=== PATIENT | female | born 1955 | race Caucasian/White ===

== ENCOUNTER 2020-11-17 11:22 | Observation (INO) ==
[2020-11-17 12:05] LABS: Basophils % 0.3 % (0.0-0.8); Eosinophils % 0.2 % (0.00-10.9); Hematocrit 40.6 VOL% (35.7-47.0); Hemoglobin 13.2 GM/DL (12.0-16.0); Immature Granulocytes % 0.8 %; Immature Granulocytes Absolute 0.09 #; Lymphocytes # 0.7 10*3/uL (1.4-4.0); Lymphocytes % 6.3 % (21.3-54.2); Mean Corpuscular HGB Conc 32.5 GM/DL (32-36); Mean Corpuscular Volume 90.4 FL (87-102); Monocytes % 4.1 % (1.7-12.7); Neutrophils % 88.3 % (38.7-73.9); Platelet Count 213 T/CUMM (130-400); Red Blood Count 4.49 MC/CUMM (3.8-5.5); Red Cell Distribution Width 12.5 % (9.3-17.3)
[2020-11-17 12:26] LABS: Albumin 3.1 G/DL (3.4-5.0); Calcium 9.1 MG/DL (8.5-10.1); Total Protein 6.2 G/DL (6.4-8.3)
[2020-11-17 13:49] LABS: Ferritin 867.6 ng/ml (8-252)
[2020-11-17] MEDS ORDERED: DEXAMETHASONE 4 MG/1 ML VIAL IV STA (13:55)
[2020-11-17] MEDS ORDERED: LEVOFLOXACIN INJ 500 MG in PREMIX 1 EACH IV STA (13:56)
[2020-11-17] MEDS ORDERED: DEXTROSE 50% 25 GM/50 ML VIAL IV PRN (15:03)
[2020-11-17] MEDS ORDERED: GLUCAGON 1 MG VIAL IM PRN (15:03)
[2020-11-17] MEDS ORDERED: ACETAMINOPHEN 325 MG TABLET PO PRN (15:03)
[2020-11-17] MEDS ORDERED: ONDANSETRON 4 MG/2 ML VIAL IV PRN (15:03)
[2020-11-17] MEDS ORDERED: hydrALAZINE 20 MG/1 ML VIAL IV PRN (15:03)
[2020-11-17] MEDS ORDERED: DOCUSATE SODIUM 100 MG CAPSULE PO PRN (15:03)
[2020-11-17] MEDS ORDERED: AZITHROMYCIN INJ 500 MG in SODIUM CHLORIDE 0.9% 250 ML IV ONE (15:06)
[2020-11-17] MEDS ORDERED: MELATONIN 3 MG TABLET PO PRN (15:06)
[2020-11-17] MEDS ORDERED: ENOXAPARIN 40 MG/0.4 ML SYRINGE SUBCUT SCH (15:30)
[2020-11-17 17:07] LABS: PT Patient Result 10.7 SECS (9.8-11.9)
[2020-11-17] MEDS: guaiFENesin/DM ER 600-30 MG TABLET PO SCH (20:55)
[2020-11-17] MEDS: ASCORBIC ACID 500 MG TABLET PO SCH (20:55)
[2020-11-18 05:44] LABS: Basophils % 0.1 % (0.0-0.8); Hematocrit 36.9 VOL% (35.7-47.0); Hemoglobin 12.7 GM/DL (12.0-16.0); Immature Granulocytes % 1.1 %; Mean Corpuscular HGB Conc 34.4 GM/DL (32-36); Mean Corpuscular Volume 88.7 FL (87-102); Mean Platelet Volume 10.1 FL (9.6-12.0); Monocytes % 3.9 % (1.7-12.7); Neutrophils % 83.9 % (38.7-73.9); Platelet Count 228 T/CUMM (130-400); Red Blood Count 4.16 MC/CUMM (3.8-5.5); Red Cell Distribution Width 12.5 % (9.3-17.3); White Blood Count 8.8 T/CUMM (4-12)
[2020-11-18 06:19] LABS: Ferritin 767.3 ng/ml (8-252)
[2020-11-18 06:29] LABS: Calcium 9.1 MG/DL (8.5-10.1); Osmolality,Calculated 279.5 MOS/KG (273-304); Potassium 4.7 MMOL/L (3.5-5.1); Risk Ratio 5.47; Thyroid Stimulating Hormone 0.322 uIU/ml (0.358-3.74); VLDL CHOLESTEROL 22.4 MG/DL
[2020-11-18] MEDS: guaiFENesin/DM ER 600-30 MG TABLET PO SCH (08:23)
[2020-11-18] MEDS: ASCORBIC ACID 500 MG TABLET PO SCH (08:23)
[2020-11-18] MEDS ORDERED: PANTOPRAZOLE 40 MG TABLET PO SCH (09:00)
[2020-11-18] MEDS ORDERED: CETIRIZINE 10 MG TABLET PO SCH (09:00)
[2020-11-18] MEDS ORDERED: DEXAMETHASONE 4 MG/1 ML VIAL IV SCH (09:00)
[2020-11-18] MEDS ORDERED: CHOLECALCIFEROL 1,000 UNIT TABLET PO SCH (09:00)
[2020-11-18] MEDS ORDERED: ZINC GLUCONATE 50 MG TABLET PO SCH (09:00)
[2020-11-18 11:41] LABS: Free T4 (Free Thyroxine) 1.33 NG/DL (0.76-1.46)
[2020-11-18 16:05] VITALS: BP 108/70
== END 2020-11-18 16:45 | disposition home or self-care (01) ==
LOC: N.ED 11:22 → N.EDINP 11:22 → N.2E 15:36
PROVIDERS: ADMIT Internal Medicine; ATTEND Internal Medicine

== ENCOUNTER 2020-11-25 20:14 | Inpatient (IN) ==
[2020-11-25 20:51] LABS: Basophils # 0.1 10*3/uL (0.0-0.2); Basophils % 0.2 % (0.0-0.8); Eosinophils # 0.2 10*3/uL (0.0-0.87); Hematocrit 35.8 VOL% (35.7-47.0); Hemoglobin 11.8 GM/DL (12.0-16.0); Immature Granulocytes Absolute 0.21 #; Lymphocytes # 1.4 10*3/uL (1.4-4.0); Lymphocytes % 6.3 % (21.3-54.2); Mean Corpuscular Volume 89.1 FL (87-102); Mean Platelet Volume 9.3 FL (9.6-12.0); Monocytes % 4.2 % (1.7-12.7); Neutrophils % 87.3 % (38.7-73.9); Platelet Count 335 T/CUMM (130-400); Red Blood Count 4.02 MC/CUMM (3.8-5.5); Red Cell Distribution Width 12.6 % (9.3-17.3); White Blood Count 21.4 T/CUMM (4-12)
[2020-11-25] MEDS ORDERED: LEVOFLOXACIN INJ 750 MG in PREMIX 1 EACH IV STA (21:07)
[2020-11-25 21:16] LABS: Albumin 2.2 G/DL (3.4-5.0); Bilirubin,Total 0.8 MG/DL (0.2-1.0); Calcium 8.7 MG/DL (8.5-10.1); Osmolality,Calculated 273.8 MOS/KG (273-304); Potassium 3.6 MMOL/L (3.5-5.1); Total Protein 6.7 G/DL (6.4-8.3)
[2020-11-25 21:24] LABS: Ferritin 919.1 ng/ml (8-252)
[2020-11-25 21:27] LABS: Eosinophils 1 % (0-10); Lymphocytes 12 % (20-55); Metamyelocytes 1 %; Polychromasia Few; Reactive Lymphocytes 1+; Segmented Neutrophils 83 % (50-85); Total Cells Counted 100
[2020-11-25 21:28] LABS: Platelet Estimate Increased
[2020-11-25] MEDS ORDERED: DEXAMETHASONE 4 MG/1 ML VIAL IV STA (21:45)
[2020-11-25] MEDS ORDERED: DEXAMETHASONE 10 MG/1 ML VIAL ONE (21:46)
[2020-11-25] MEDS ORDERED: SODIUM CHLORIDE 0.9% 1,000 ML IV STA (21:47)
[2020-11-25] MEDS ORDERED: ACETAMINOPHEN 500 MG TABLET PO STA (22:58)
[2020-11-25] MEDS ORDERED: ENOXAPARIN 30 MG/0.3 ML SYRINGE SUBCUT STA (22:58)
[2020-11-25] MEDS ORDERED: ENOXAPARIN 100 MG/ML SYRINGE SUBCUT ONE (23:14)
[2020-11-26] MEDS ORDERED: ACETAMINOPHEN 325 MG TABLET PO PRN (02:19)
[2020-11-26] MEDS ORDERED: ONDANSETRON 4 MG/2 ML VIAL IV PRN (02:19)
[2020-11-26 06:39] LABS: Basophils % 0.1 % (0.0-0.8); Hematocrit 32.3 VOL% (35.7-47.0); Hemoglobin 10.9 GM/DL (12.0-16.0); Immature Granulocytes % 0.8 %; Immature Granulocytes Absolute 0.14 #; Lymphocytes % 5.8 % (21.3-54.2); Mean Corpuscular HGB Conc 33.7 GM/DL (32-36); Mean Corpuscular Volume 89.2 FL (87-102); Mean Platelet Volume 9.2 FL (9.6-12.0); Monocytes % 1.3 % (1.7-12.7); Platelet Count 294 T/CUMM (130-400); Red Blood Count 3.62 MC/CUMM (3.8-5.5); Red Cell Distribution Width 12.9 % (9.3-17.3); White Blood Count 16.5 T/CUMM (4-12)
[2020-11-26 07:46] LABS: Albumin 1.8 G/DL (3.4-5.0); Bilirubin,Total 0.9 MG/DL (0.2-1.0); Calcium 8.8 MG/DL (8.5-10.1); Ferritin 764.7 ng/ml (8-252); Osmolality,Calculated 278.5 MOS/KG (273-304); Potassium 3.9 MMOL/L (3.5-5.1); Total Protein 6.2 G/DL (6.4-8.3)
[2020-11-26 08:18] LABS: Lymphocytes 4 % (20-55); Platelet Estimate Normal; Polychromasia Slight; Segmented Neutrophils 94 % (50-85); Total Cells Counted 100
[2020-11-26] MEDS ORDERED: RIVAROXABAN 15 MG TABLET PO SCH (09:00)
[2020-11-26] MEDS ORDERED: [UNRECOGNIZED DRUG - OTHER] PO SCH (09:00)
[2020-11-26] MEDS ORDERED: DEXAMETHASONE 10 MG/1 ML VIAL IV SCH (09:00)
[2020-11-26] MEDS: ASPIRIN EC 81 MG TABLET PO SCH (10:19)
[2020-11-26] MEDS: LOSARTAN 25 MG TABLET PO SCH (10:19)
[2020-11-26] MEDS: PANTOPRAZOLE 40 MG TABLET PO SCH (10:19)
[2020-11-26] MEDS: ASCORBIC ACID 500 MG TABLET PO SCH ×2 (10:19→20:59)
[2020-11-26] MEDS: ZINC GLUCONATE 50 MG TABLET PO SCH (10:19)
[2020-11-26] MEDS: MULTIVITAMIN (CENTRUM) TABLET PO SCH (10:22)
[2020-11-26] MEDS ORDERED: INFLUENZA VIRUS VACCINE 0.5 ML SYRINGE IM ONE (10:41)
[2020-11-26] MEDS: CEFEPIME 1,000 MG in SODIUM CHLORIDE 0.9% 100 ML IV SCH ×2 (13:01→19:03)
[2020-11-26] MEDS: methylPREDNISolone SOD SUC 40 MG/1 ML VIAL IV SCH ×2 (13:02→20:58)
[2020-11-26] MEDS: [UNRECOGNIZED DRUG - REMARK] BOTH NARES SCH ×2 (13:05→21:54)
[2020-11-26] MEDS: VANCOMYCIN INJ 1,250 MG in SODIUM CHLORIDE 0.9% 250 ML IV SCH (13:42)
[2020-11-26] MEDS: HEPARIN DRIP 25,000 UNITS/500 ML PREMIX IV SCH (14:15)
[2020-11-26] MEDS ORDERED: LEVOFLOXACIN INJ 750 MG in PREMIX 1 EACH IV SCH (21:00)
[2020-11-26] MEDS: FLUTICASONE 50 MCG NASAL SPRAY 16 GM BOTTLE BOTH NARES SCH (22:05)
[2020-11-27] MEDS: CEFEPIME 1,000 MG in SODIUM CHLORIDE 0.9% 100 ML IV SCH ×4 (01:16→18:06)
[2020-11-27] MEDS: VANCOMYCIN INJ 1,250 MG in SODIUM CHLORIDE 0.9% 250 ML IV SCH ×2 (01:48→15:45)
[2020-11-27 04:20] LABS: Basophils % 0.1 % (0.0-0.8); Hematocrit 32.8 VOL% (35.7-47.0); Hemoglobin 10.8 GM/DL (12.0-16.0); Immature Granulocytes % 1.5 %; Immature Granulocytes Absolute 0.39 #; Lymphocytes # 1.7 10*3/uL (1.4-4.0); Lymphocytes % 6.4 % (21.3-54.2); Mean Corpuscular HGB Conc 32.9 GM/DL (32-36); Mean Corpuscular Volume 90.1 FL (87-102); Mean Platelet Volume 9.3 FL (9.6-12.0); Monocytes % 3.8 % (1.7-12.7); Neutrophils % 88.2 % (38.7-73.9); Platelet Count 399 T/CUMM (130-400); Red Blood Count 3.64 MC/CUMM (3.8-5.5); Red Cell Distribution Width 12.9 % (9.3-17.3); White Blood Count 26.1 T/CUMM (4-12)
[2020-11-27 04:58] LABS: Calcium 8.7 MG/DL (8.5-10.1); Osmolality,Calculated 278.5 MOS/KG (273-304); Potassium 3.7 MMOL/L (3.5-5.1)
[2020-11-27] MEDS: methylPREDNISolone SOD SUC 40 MG/1 ML VIAL IV SCH ×3 (04:58→20:42)
[2020-11-27] MEDS: HEPARIN DRIP 25,000 UNITS/500 ML PREMIX IV SCH (05:24)
[2020-11-27] MEDS: LOSARTAN 25 MG TABLET PO SCH (08:16)
[2020-11-27] MEDS: ASCORBIC ACID 500 MG TABLET PO SCH ×2 (08:16→20:39)
[2020-11-27] MEDS: ASPIRIN EC 81 MG TABLET PO SCH (08:16)
[2020-11-27] MEDS: PANTOPRAZOLE 40 MG TABLET PO SCH (08:16)
[2020-11-27] MEDS: ZINC GLUCONATE 50 MG TABLET PO SCH (08:16)
[2020-11-27] MEDS: MULTIVITAMIN (CENTRUM) TABLET PO SCH (08:16)
[2020-11-27 08:33] LABS: Lymphocytes 10 % (20-55); Metamyelocytes 1 %; Microcytosis 1+; Myelocytes 1 %; Ovalocytes Few; Platelet Estimate Normal; Polychromasia Slight; Segmented Neutrophils 86 % (50-85); Total Cells Counted 100
[2020-11-27] MEDS: FLUTICASONE 50 MCG NASAL SPRAY 16 GM BOTTLE BOTH NARES SCH ×2 (09:31→20:42)
[2020-11-27] MEDS: APIXABAN 5 MG TABLET PO SCH ×2 (13:12→20:40)
[2020-11-27] MEDS: DOXYCYCLINE HYCLATE 100 MG CAPSULE PO SCH (20:39)
[2020-11-28] MEDS: CEFEPIME 1,000 MG in SODIUM CHLORIDE 0.9% 100 ML IV SCH ×4 (00:22→18:55)
[2020-11-28] MEDS ORDERED: MORPHINE 4 MG/1 ML VIAL IV ONE (01:19)
[2020-11-28] MEDS ORDERED: METOPROLOL TARTRATE 5 MG/5 ML VIAL IV ONE (02:09)
[2020-11-28 02:59] LABS: Basophils % 0.1 % (0.0-0.8); Hematocrit 33.8 VOL% (35.7-47.0); Hemoglobin 11.1 GM/DL (12.0-16.0); Immature Granulocytes % 2.3 %; Immature Granulocytes Absolute 0.61 #; Lymphocytes # 1.1 10*3/uL (1.4-4.0); Mean Corpuscular HGB Conc 32.8 GM/DL (32-36); Mean Corpuscular Volume 89.9 FL (87-102); Mean Platelet Volume 9.3 FL (9.6-12.0); Monocytes % 3.5 % (1.7-12.7); Neutrophils % 90.1 % (38.7-73.9); Platelet Count 370 T/CUMM (130-400); Red Blood Count 3.76 MC/CUMM (3.8-5.5); White Blood Count 26.1 T/CUMM (4-12)
[2020-11-28 03:26] LABS: Bilirubin,Direct 0.18 MG/DL (0.0-0.20); Bilirubin,Indirect 0.2 MG/DL (0.0-1.0); Bilirubin,Total 0.4 MG/DL (0.2-1.0); Calcium 8.2 MG/DL (8.5-10.1); Osmolality,Calculated 281.4 MOS/KG (273-304); Potassium 3.6 MMOL/L (3.5-5.1); Total Protein 6.2 G/DL (6.4-8.3)
[2020-11-28] MEDS: VANCOMYCIN INJ 1,250 MG in SODIUM CHLORIDE 0.9% 250 ML IV SCH (03:29)
[2020-11-28 04:11] LABS: Eosinophils 2 % (0-10); Lymphocytes 9 % (20-55); Microcytosis 2+; Nucleated Red Blood Cells 1 (0-5); Segmented Neutrophils 89 % (50-85); Total Cells Counted 100
[2020-11-28 04:12] LABS: Platelet Estimate Adequate; Polychromasia Slight
[2020-11-28] MEDS: methylPREDNISolone SOD SUC 40 MG/1 ML VIAL IV SCH ×3 (04:30→20:47)
[2020-11-28] MEDS: DOXYCYCLINE HYCLATE 100 MG CAPSULE PO SCH ×2 (09:02→20:48)
[2020-11-28] MEDS: PANTOPRAZOLE 40 MG TABLET PO SCH (09:02)
[2020-11-28] MEDS: APIXABAN 5 MG TABLET PO SCH ×2 (09:02→20:48)
[2020-11-28] MEDS: ZINC GLUCONATE 50 MG TABLET PO SCH (09:03)
[2020-11-28] MEDS: MULTIVITAMIN (CENTRUM) TABLET PO SCH (09:03)
[2020-11-28] MEDS: ASCORBIC ACID 500 MG TABLET PO SCH ×2 (09:03→20:48)
[2020-11-28] MEDS: LOSARTAN 25 MG TABLET PO SCH (09:03)
[2020-11-28] MEDS: FLUTICASONE 50 MCG NASAL SPRAY 16 GM BOTTLE BOTH NARES SCH ×2 (09:03→20:48)
[2020-11-28] MEDS: ALPRAZolam 0.25 MG TABLET PO PRN ×2 (13:52→20:48)
[2020-11-28] MEDS: VANCOMYCIN INJ 1,500 MG in SODIUM CHLORIDE 0.9% 500 ML IV SCH (13:52)
[2020-11-29] MEDS: VANCOMYCIN INJ 1,500 MG in SODIUM CHLORIDE 0.9% 500 ML IV SCH ×2 (00:02→11:22)
[2020-11-29] MEDS: MORPHINE 4 MG/1 ML VIAL IV PRN ×2 (00:03→20:45)
[2020-11-29] MEDS: ALBUTEROL INHALER 18 GM INH PRN ×2 (00:28→08:11)
[2020-11-29] MEDS: CEFEPIME 1,000 MG in SODIUM CHLORIDE 0.9% 100 ML IV SCH ×4 (01:33→18:13)
[2020-11-29] MEDS: methylPREDNISolone SOD SUC 40 MG/1 ML VIAL IV SCH ×3 (04:48→20:48)
[2020-11-29 04:56] LABS: Basophils % 0.1 % (0.0-0.8); Hematocrit 33.5 VOL% (35.7-47.0); Hemoglobin 10.9 GM/DL (12.0-16.0); Immature Granulocytes % 1.7 %; Immature Granulocytes Absolute 0.35 #; Lymphocytes # 1.1 10*3/uL (1.4-4.0); Lymphocytes % 5.4 % (21.3-54.2); Mean Corpuscular HGB Conc 32.5 GM/DL (32-36); Mean Corpuscular Volume 89.6 FL (87-102); Mean Platelet Volume 9.3 FL (9.6-12.0); Neutrophils % 89.8 % (38.7-73.9); Platelet Count 303 T/CUMM (130-400); Red Blood Count 3.74 MC/CUMM (3.8-5.5); Red Cell Distribution Width 12.9 % (9.3-17.3)
[2020-11-29 05:19] LABS: Hypochromasia 1+; Lymphocytes 7 % (20-55); Microcytosis 1+; Platelet Estimate Adequate; Segmented Neutrophils 90 % (50-85); Total Cells Counted 100
[2020-11-29 05:21] LABS: Albumin 1.8 G/DL (3.4-5.0); Calcium 8.7 MG/DL (8.5-10.1); Osmolality,Calculated 279.4 MOS/KG (273-304); Potassium 3.6 MMOL/L (3.5-5.1); Total Protein 6.2 G/DL (6.4-8.3)
[2020-11-29] MEDS: DOXYCYCLINE HYCLATE 100 MG CAPSULE PO SCH ×2 (08:06→20:47)
[2020-11-29] MEDS: ZINC GLUCONATE 50 MG TABLET PO SCH (08:06)
[2020-11-29] MEDS: ASCORBIC ACID 500 MG TABLET PO SCH ×2 (08:07→20:48)
[2020-11-29] MEDS: PANTOPRAZOLE 40 MG TABLET PO SCH (08:07)
[2020-11-29] MEDS: APIXABAN 5 MG TABLET PO SCH ×2 (08:07→20:48)
[2020-11-29] MEDS: LOSARTAN 25 MG TABLET PO SCH (08:07)
[2020-11-29] MEDS: MULTIVITAMIN (CENTRUM) TABLET PO SCH (08:07)
[2020-11-29] MEDS: FLUTICASONE 50 MCG NASAL SPRAY 16 GM BOTTLE BOTH NARES SCH ×2 (08:08→20:48)
[2020-11-29] MEDS: ALBUTEROL INHALER 18 GM INH SCH ×2 (13:56→18:13)
[2020-11-29] MEDS: ALPRAZolam 0.25 MG TABLET PO PRN (13:56)
[2020-11-30] MEDS: VANCOMYCIN INJ 1,500 MG in SODIUM CHLORIDE 0.9% 500 ML IV SCH (00:11)
[2020-11-30] MEDS: ALPRAZolam 0.25 MG TABLET PO PRN ×3 (00:26→21:22)
[2020-11-30] MEDS: CEFEPIME 1,000 MG in SODIUM CHLORIDE 0.9% 100 ML IV SCH ×2 (01:27→06:06)
[2020-11-30] MEDS: ALBUTEROL INHALER 18 GM INH SCH ×4 (01:27→21:21)
[2020-11-30 03:49] LABS: ABG HCO3 28.8 MMOL/L (20-26); ABG Oxygen Saturation 90.3 % (95-100); ABG PCO2 39.9 MM HG (35-48); ABG PH 7.477 (7.35-7.45); ABG PO2 57.4 MM HG (80-95); ABG TCO2 30.1 MMOL/L (23-27); Allen Test Positive; Pt O2 Delivery Device Other
[2020-11-30 04:32] LABS: Basophils % 0.1 % (0.0-0.8); Hematocrit 33.4 VOL% (35.7-47.0); Hemoglobin 10.5 GM/DL (12.0-16.0); Immature Granulocytes % 2.4 %; Immature Granulocytes Absolute 0.49 #; Lymphocytes % 4.8 % (21.3-54.2); Mean Corpuscular HGB Conc 31.4 GM/DL (32-36); Mean Corpuscular Volume 91.8 FL (87-102); Mean Platelet Volume 9.5 FL (9.6-12.0); Monocytes % 2.8 % (1.7-12.7); Neutrophils % 89.9 % (38.7-73.9); Platelet Count 260 T/CUMM (130-400); Red Blood Count 3.64 MC/CUMM (3.8-5.5); Red Cell Distribution Width 13.1 % (9.3-17.3); White Blood Count 20.1 T/CUMM (4-12)
[2020-11-30 04:58] LABS: Hypochromasia 1+; Lymphocytes 5 % (20-55); Microcytosis 1+; Platelet Estimate Adequate; Segmented Neutrophils 92 % (50-85); Total Cells Counted 100
[2020-11-30] MEDS: methylPREDNISolone SOD SUC 40 MG/1 ML VIAL IV SCH ×3 (05:46→18:01)
[2020-11-30] MEDS ORDERED: FUROSEMIDE 40 MG/4 ML VIAL IV ONE (07:47)
[2020-11-30] MEDS: DOXYCYCLINE HYCLATE 100 MG CAPSULE PO SCH (08:08)
[2020-11-30] MEDS: ASCORBIC ACID 500 MG TABLET PO SCH ×2 (08:09→21:21)
[2020-11-30] MEDS: PANTOPRAZOLE 40 MG TABLET PO SCH (08:09)
[2020-11-30] MEDS: MULTIVITAMIN (CENTRUM) TABLET PO SCH (08:09)
[2020-11-30] MEDS: ZINC GLUCONATE 50 MG TABLET PO SCH (08:09)
[2020-11-30] MEDS: FLUTICASONE 50 MCG NASAL SPRAY 16 GM BOTTLE BOTH NARES SCH ×2 (08:09→21:21)
[2020-11-30] MEDS: LOSARTAN 25 MG TABLET PO SCH (08:12)
[2020-11-30] MEDS: APIXABAN 5 MG TABLET PO SCH ×2 (08:12→21:21)
[2020-11-30] MEDS: cefTRIAXone 1,000 MG in SYRINGE 1 EACH IV SCH (12:11)
[2020-11-30] MEDS: MORPHINE 4 MG/1 ML VIAL IV PRN (13:19)
[2020-12-01] MEDS: methylPREDNISolone SOD SUC 40 MG/1 ML VIAL IV SCH ×4 (00:04→18:13)
[2020-12-01] MEDS: ALBUTEROL INHALER 18 GM INH SCH ×4 (00:11→18:13)
[2020-12-01] MEDS: guaiFENesin/CODEINE 5 ML LIQUID PO PRN ×2 (00:36→14:10)
[2020-12-01 04:12] LABS: Basophils % 0.1 % (0.0-0.8); Hematocrit 32.3 VOL% (35.7-47.0); Immature Granulocytes % 2.5 %; Immature Granulocytes Absolute 0.43 #; Lymphocytes # 0.9 10*3/uL (1.4-4.0); Lymphocytes % 5.3 % (21.3-54.2); Mean Corpuscular HGB Conc 34.1 GM/DL (32-36); Mean Corpuscular Volume 88.3 FL (87-102); Mean Platelet Volume 9.6 FL (9.6-12.0); Monocytes % 2.5 % (1.7-12.7); NRBC # 0.02 10*3/uL; Neutrophils % 89.6 % (38.7-73.9); Platelet Count 246 T/CUMM (130-400); Red Blood Count 3.66 MC/CUMM (3.8-5.5); White Blood Count 17.5 T/CUMM (4-12)
[2020-12-01 04:35] LABS: Hypochromasia Slight; Microcytosis Slight; Platelet Estimate Adequate
[2020-12-01 04:37] LABS: Calcium 8.3 MG/DL (8.5-10.1); Osmolality,Calculated 285.1 MOS/KG (273-304); Potassium 3.9 MMOL/L (3.5-5.1)
[2020-12-01] MEDS: FLUTICASONE 50 MCG NASAL SPRAY 16 GM BOTTLE BOTH NARES SCH ×2 (08:30→20:41)
[2020-12-01] MEDS: PANTOPRAZOLE 40 MG TABLET PO SCH (08:30)
[2020-12-01] MEDS: MULTIVITAMIN (CENTRUM) TABLET PO SCH (08:30)
[2020-12-01] MEDS: ALPRAZolam 0.25 MG TABLET PO PRN ×2 (08:30→20:41)
[2020-12-01] MEDS: LOSARTAN 25 MG TABLET PO SCH (08:30)
[2020-12-01] MEDS: ZINC GLUCONATE 50 MG TABLET PO SCH (08:30)
[2020-12-01] MEDS: ASCORBIC ACID 500 MG TABLET PO SCH ×2 (08:30→20:41)
[2020-12-01] MEDS: APIXABAN 5 MG TABLET PO SCH ×2 (08:30→20:41)
[2020-12-01] MEDS: MORPHINE 4 MG/1 ML VIAL IV PRN ×2 (10:19→16:00)
[2020-12-01] MEDS: cefTRIAXone 1,000 MG in SYRINGE 1 EACH IV SCH (13:00)
[2020-12-02] MEDS: methylPREDNISolone SOD SUC 40 MG/1 ML VIAL IV SCH ×4 (00:43→18:11)
[2020-12-02] MEDS: ALBUTEROL INHALER 18 GM INH SCH ×4 (01:44→19:52)
[2020-12-02 04:44] LABS: ABG Base Excess 8.6 MMOL/L (-2.5-2.5); ABG HCO3 33.1 MMOL/L (20-26); ABG Oxygen Saturation 89.8 % (95-100); ABG PCO2 45.1 MM HG (35-48); ABG PH 7.483 (7.35-7.45); ABG PO2 54.4 MM HG (80-95); ABG TCO2 34.4 MMOL/L (23-27)
[2020-12-02] MEDS ORDERED: hydrALAZINE 20 MG/1 ML VIAL IV PRN (05:44)
[2020-12-02] MEDS: MORPHINE 4 MG/1 ML VIAL IV PRN (06:32)
[2020-12-02] MEDS: ALPRAZolam 0.25 MG TABLET PO PRN (06:52)
[2020-12-02] MEDS: guaiFENesin/CODEINE 5 ML LIQUID PO PRN (06:53)
[2020-12-02] MEDS: PANTOPRAZOLE 40 MG TABLET PO SCH (08:25)
[2020-12-02] MEDS: ZINC GLUCONATE 50 MG TABLET PO SCH (08:25)
[2020-12-02] MEDS: FLUTICASONE 50 MCG NASAL SPRAY 16 GM BOTTLE BOTH NARES SCH ×2 (08:26→20:37)
[2020-12-02] MEDS: ASCORBIC ACID 500 MG TABLET PO SCH ×2 (08:26→20:37)
[2020-12-02] MEDS: APIXABAN 5 MG TABLET PO SCH ×2 (08:26→20:29)
[2020-12-02] MEDS: MULTIVITAMIN (CENTRUM) TABLET PO SCH (08:26)
[2020-12-02] MEDS: LOSARTAN 25 MG TABLET PO SCH (08:26)
[2020-12-02] MEDS ORDERED: ALPRAZolam 0.25 MG TABLET PO ONE (09:00)
[2020-12-02] MEDS: cefTRIAXone 1,000 MG in SYRINGE 1 EACH IV SCH (11:35)
[2020-12-02] MEDS: NIFEdipine 10 MG CAPSULE PO SCH ×3 (11:39→22:32)
[2020-12-02] MEDS: METOPROLOL TARTRATE 25 MG TABLET PO SCH ×2 (11:39→20:37)
[2020-12-02] MEDS: ALBUTEROL/IPRATROPIUM 3 ML NEB RESP TX SCH (20:07)
[2020-12-02] MEDS: ALPRAZolam 0.5 MG TABLET PO SCH (20:37)
[2020-12-03] MEDS: methylPREDNISolone SOD SUC 40 MG/1 ML VIAL IV SCH ×4 (00:03→17:52)
[2020-12-03] MEDS: NIFEdipine 10 MG CAPSULE PO SCH ×6 (00:03→21:34)
[2020-12-03] MEDS: ALBUTEROL/IPRATROPIUM 3 ML NEB RESP TX SCH ×4 (01:12→19:33)
[2020-12-03 03:46] LABS: ABG Base Excess 10.2 MMOL/L (-2.5-2.5); ABG HCO3 33.9 MMOL/L (20-26); ABG Oxygen Saturation 96.9 % (95-100); ABG PCO2 48.4 MM HG (35-48); ABG PH 7.474 (7.35-7.45); ABG PO2 82.5 MM HG (80-95); ABG TCO2 30.8 MMOL/L (23-27); Allen Test Positive; Pt O2 Delivery Device BIPAP
[2020-12-03 06:57] LABS: Basophils # 0.1 10*3/uL (0.0-0.2); Basophils % 0.3 % (0.0-0.8); Hematocrit 38.8 VOL% (35.7-47.0); Hemoglobin 12.5 GM/DL (12.0-16.0); Immature Granulocytes % 4.3 %; Immature Granulocytes Absolute 0.89 #; Lymphocytes # 1.2 10*3/uL (1.4-4.0); Lymphocytes % 5.8 % (21.3-54.2); Mean Corpuscular HGB Conc 32.2 GM/DL (32-36); Mean Corpuscular Volume 91.1 FL (87-102); Mean Platelet Volume 9.8 FL (9.6-12.0); Monocytes % 3.7 % (1.7-12.7); Neutrophils % 85.9 % (38.7-73.9); Platelet Count 259 T/CUMM (130-400); Red Blood Count 4.26 MC/CUMM (3.8-5.5); Red Cell Distribution Width 12.9 % (9.3-17.3); White Blood Count 20.6 T/CUMM (4-12)
[2020-12-03 07:17] LABS: Band Neutrophils 1 % (0-10); Hypochromasia Slight; Lymphocytes 4 % (20-55); Microcytosis Slight; Platelet Estimate Adequate; Segmented Neutrophils 89 % (50-85); Total Cells Counted 100
[2020-12-03 07:24] LABS: Calcium 8.3 MG/DL (8.5-10.1); Osmolality,Calculated 276.8 MOS/KG (273-304); Potassium 4.1 MMOL/L (3.5-5.1)
[2020-12-03] MEDS: ZINC GLUCONATE 50 MG TABLET PO SCH (08:08)
[2020-12-03] MEDS: ASCORBIC ACID 500 MG TABLET PO SCH ×2 (08:08→20:48)
[2020-12-03] MEDS: METOPROLOL TARTRATE 25 MG TABLET PO SCH ×2 (08:09→20:48)
[2020-12-03] MEDS: MULTIVITAMIN (CENTRUM) TABLET PO SCH (08:09)
[2020-12-03] MEDS: LOSARTAN 25 MG TABLET PO SCH (08:09)
[2020-12-03] MEDS: PANTOPRAZOLE 40 MG TABLET PO SCH (08:09)
[2020-12-03] MEDS: APIXABAN 5 MG TABLET PO SCH ×2 (08:09→20:47)
[2020-12-03] MEDS: FLUTICASONE 50 MCG NASAL SPRAY 16 GM BOTTLE BOTH NARES SCH ×2 (08:10→20:48)
[2020-12-03] MEDS: ALPRAZolam 0.5 MG TABLET PO SCH ×2 (08:15→20:48)
[2020-12-03] MEDS: AZITHROMYCIN INJ 250 MG in SODIUM CHLORIDE 0.9% 250 ML IV SCH (09:10)
[2020-12-03] MEDS: FUROSEMIDE 40 MG/4 ML VIAL IV SCH (09:32)
[2020-12-03] MEDS: cefTRIAXone 1,000 MG in SYRINGE 1 EACH IV SCH (12:07)
[2020-12-03] MEDS ORDERED: ALBUTEROL/IPRATROPIUM 3 ML NEB RESP TX SCH (19:49)
[2020-12-04] MEDS: methylPREDNISolone SOD SUC 40 MG/1 ML VIAL IV SCH ×4 (00:40→18:27)
[2020-12-04] MEDS: NIFEdipine 10 MG CAPSULE PO SCH ×8 (00:40→23:13)
[2020-12-04] MEDS: ALBUTEROL/IPRATROPIUM 3 ML NEB RESP TX SCH ×4 (01:57→19:23)
[2020-12-04 03:34] LABS: ABG Base Excess 9.1 MMOL/L (-2.5-2.5); ABG HCO3 33.7 MMOL/L (20-26); ABG Oxygen Saturation 93.3 % (95-100); ABG PCO2 45.8 MM HG (35-48); ABG PH 7.484 (7.35-7.45); ABG PO2 64.4 MM HG (80-95); ABG TCO2 35.1 MMOL/L (23-27)
[2020-12-04 04:44] LABS: Basophils # 0.1 10*3/uL (0.0-0.2); Basophils % 0.3 % (0.0-0.8); Eosinophils % 0.1 % (0.00-10.9); Hematocrit 36.9 VOL% (35.7-47.0); Hemoglobin 11.8 GM/DL (12.0-16.0); Immature Granulocytes % 5.3 %; Immature Granulocytes Absolute 0.96 #; Lymphocytes # 1.1 10*3/uL (1.4-4.0); Lymphocytes % 6.2 % (21.3-54.2); Mean Corpuscular Volume 91.6 FL (87-102); Mean Platelet Volume 9.8 FL (9.6-12.0); Monocytes % 3.7 % (1.7-12.7); Neutrophils % 84.4 % (38.7-73.9); Platelet Count 278 T/CUMM (130-400); Red Blood Count 4.03 MC/CUMM (3.8-5.5); Red Cell Distribution Width 12.9 % (9.3-17.3)
[2020-12-04 05:03] LABS: Calcium 8.4 MG/DL (8.5-10.1); Osmolality,Calculated 276.8 MOS/KG (273-304); Potassium 4.1 MMOL/L (3.5-5.1)
[2020-12-04 05:06] LABS: Band Neutrophils 1 % (0-10); Hypochromasia 1+; Lymphocytes 3 % (20-55); Microcytosis 1+; Platelet Estimate Adequate; Segmented Neutrophils 95 % (50-85); Total Cells Counted 100
[2020-12-04] MEDS: ASCORBIC ACID 500 MG TABLET PO SCH ×2 (08:36→20:38)
[2020-12-04] MEDS: ZINC GLUCONATE 50 MG TABLET PO SCH (08:37)
[2020-12-04] MEDS: APIXABAN 5 MG TABLET PO SCH ×2 (08:37→20:37)
[2020-12-04] MEDS: METOPROLOL TARTRATE 25 MG TABLET PO SCH ×2 (08:37→20:38)
[2020-12-04] MEDS: LOSARTAN 25 MG TABLET PO SCH (08:37)
[2020-12-04] MEDS: MULTIVITAMIN (CENTRUM) TABLET PO SCH (08:37)
[2020-12-04] MEDS: ALPRAZolam 0.5 MG TABLET PO SCH ×2 (08:37→20:38)
[2020-12-04] MEDS: PANTOPRAZOLE 40 MG TABLET PO SCH (08:37)
[2020-12-04] MEDS: FLUTICASONE 50 MCG NASAL SPRAY 16 GM BOTTLE BOTH NARES SCH ×2 (08:37→20:37)
[2020-12-04] MEDS: FUROSEMIDE 40 MG/4 ML VIAL IV SCH (08:38)
[2020-12-04] MEDS: AZITHROMYCIN INJ 250 MG in SODIUM CHLORIDE 0.9% 250 ML IV SCH (09:15)
[2020-12-04] MEDS: cefTRIAXone 1,000 MG in SYRINGE 1 EACH IV SCH (11:58)
[2020-12-05] MEDS: methylPREDNISolone SOD SUC 40 MG/1 ML VIAL IV SCH ×4 (00:08→23:07)
[2020-12-05] MEDS: ALBUTEROL/IPRATROPIUM 3 ML NEB RESP TX SCH ×2 (01:47→07:33)
[2020-12-05] MEDS: NIFEdipine 10 MG CAPSULE PO SCH ×2 (02:57→08:05)
[2020-12-05 04:02] LABS: Basophils # 0.1 10*3/uL (0.0-0.2); Basophils % 0.2 % (0.0-0.8); Hematocrit 37.1 VOL% (35.7-47.0); Hemoglobin 11.6 GM/DL (12.0-16.0); Immature Granulocytes % 5.8 %; Lymphocytes # 1.2 10*3/uL (1.4-4.0); Lymphocytes % 5.2 % (21.3-54.2); Mean Corpuscular HGB Conc 31.3 GM/DL (32-36); Mean Corpuscular Volume 92.8 FL (87-102); Mean Platelet Volume 9.9 FL (9.6-12.0); Monocytes % 2.7 % (1.7-12.7); Neutrophils % 86.1 % (38.7-73.9); Platelet Count 288 T/CUMM (130-400); Red Cell Distribution Width 12.9 % (9.3-17.3); White Blood Count 22.5 T/CUMM (4-12)
[2020-12-05 04:15] LABS: Calcium 8.5 MG/DL (8.5-10.1); Osmolality,Calculated 277.8 MOS/KG (273-304); Potassium 4.2 MMOL/L (3.5-5.1)
[2020-12-05 04:24] LABS: Lymphocytes 2 % (20-55); Segmented Neutrophils 96 % (50-85); Total Cells Counted 100
[2020-12-05 04:25] LABS: Hypochromasia 1+; Microcytosis 1+; Platelet Estimate Adequate
[2020-12-05 04:39] LABS: ABG Base Excess 7.9 MMOL/L (-2.5-2.5); ABG HCO3 32.8 MMOL/L (20-26); ABG Oxygen Saturation 98.6 % (95-100); ABG PCO2 46.7 MM HG (35-48); ABG PH 7.464 (7.35-7.45); ABG PO2 127.3 MM HG (80-95); ABG TCO2 34.2 MMOL/L (23-27); Allen Test Positive; Pt O2 Delivery Device BIPAP
[2020-12-05] MEDS: FUROSEMIDE 40 MG/4 ML VIAL IV SCH (08:05)
[2020-12-05] MEDS: APIXABAN 5 MG TABLET PO SCH ×2 (08:05→20:09)
[2020-12-05] MEDS: ALPRAZolam 0.5 MG TABLET PO SCH (08:05)
[2020-12-05] MEDS: LOSARTAN 25 MG TABLET PO SCH (08:05)
[2020-12-05] MEDS: ZINC GLUCONATE 50 MG TABLET PO SCH (08:05)
[2020-12-05] MEDS: MULTIVITAMIN (CENTRUM) TABLET PO SCH (08:05)
[2020-12-05] MEDS: ASCORBIC ACID 500 MG TABLET PO SCH ×2 (08:05→20:08)
[2020-12-05] MEDS: METOPROLOL TARTRATE 25 MG TABLET PO SCH ×2 (08:05→20:09)
[2020-12-05] MEDS: PANTOPRAZOLE 40 MG TABLET PO SCH (08:05)
[2020-12-05] MEDS: FLUTICASONE 50 MCG NASAL SPRAY 16 GM BOTTLE BOTH NARES SCH ×2 (08:06→20:09)
[2020-12-05] MEDS: AZITHROMYCIN INJ 250 MG in SODIUM CHLORIDE 0.9% 250 ML IV SCH (09:10)
[2020-12-05] MEDS: cefTRIAXone 1,000 MG in SYRINGE 1 EACH IV SCH (11:40)
[2020-12-05] MEDS: ALPRAZolam 0.5 MG TABLET PO PRN (20:08)
[2020-12-05] MEDS: FAMOTIDINE 20 MG TABLET PO SCH (20:09)
[2020-12-06 04:42] LABS: Basophils # 0.1 10*3/uL (0.0-0.2); Basophils % 0.3 % (0.0-0.8); Eosinophils % 0.2 % (0.00-10.9); Hematocrit 37.2 VOL% (35.7-47.0); Hemoglobin 11.6 GM/DL (12.0-16.0); Immature Granulocytes % 5.4 %; Immature Granulocytes Absolute 1.23 #; Lymphocytes # 1.1 10*3/uL (1.4-4.0); Mean Corpuscular HGB Conc 31.2 GM/DL (32-36); Mean Corpuscular Volume 93.9 FL (87-102); Mean Platelet Volume 10.1 FL (9.6-12.0); Monocytes % 3.1 % (1.7-12.7); Platelet Count 294 T/CUMM (130-400); Red Blood Count 3.96 MC/CUMM (3.8-5.5); Red Cell Distribution Width 12.9 % (9.3-17.3); White Blood Count 22.9 T/CUMM (4-12)
[2020-12-06 05:03] LABS: Eosinophils 1 % (0-10); Lymphocytes 3 % (20-55); Segmented Neutrophils 95 % (50-85); Total Cells Counted 100
[2020-12-06 05:04] LABS: Platelet Estimate Normal
[2020-12-06 05:12] LABS: Bilirubin,Total 0.4 MG/DL (0.2-1.0); Calcium 8.3 MG/DL (8.5-10.1); Ferritin 844.8 ng/ml (8-252); Osmolality,Calculated 276.8 MOS/KG (273-304); Potassium 4.4 MMOL/L (3.5-5.1); Total Protein 5.4 G/DL (6.4-8.3)
[2020-12-06] MEDS: ASCORBIC ACID 500 MG TABLET PO SCH ×2 (08:00→21:02)
[2020-12-06] MEDS: ZINC GLUCONATE 50 MG TABLET PO SCH (08:00)
[2020-12-06] MEDS: LOSARTAN 25 MG TABLET PO SCH (08:00)
[2020-12-06] MEDS: APIXABAN 5 MG TABLET PO SCH ×2 (08:01→21:02)
[2020-12-06] MEDS: CHOLECALCIFEROL 1,000 UNIT TABLET PO SCH (08:01)
[2020-12-06] MEDS: MULTIVITAMIN (CENTRUM) TABLET PO SCH (08:01)
[2020-12-06] MEDS: FAMOTIDINE 20 MG TABLET PO SCH ×2 (08:01→21:01)
[2020-12-06] MEDS: AZITHROMYCIN INJ 250 MG in SODIUM CHLORIDE 0.9% 250 ML IV SCH (08:03)
[2020-12-06] MEDS: FLUTICASONE 50 MCG NASAL SPRAY 16 GM BOTTLE BOTH NARES SCH ×2 (08:03→21:02)
[2020-12-06] MEDS: METOPROLOL TARTRATE 25 MG TABLET PO SCH ×2 (08:06→21:02)
[2020-12-06] MEDS ORDERED: PHENOL 1.4% THROAT SPRAY 177 ML BOTTLE PO PRN (08:26)
[2020-12-06] MEDS ORDERED: SALIVA SUBSTITUTE SPRAY 60 ML CAN SWISH/SWAL PRN (09:19)
[2020-12-06] MEDS: cefTRIAXone 1,000 MG in SYRINGE 1 EACH IV SCH (12:21)
[2020-12-06] MEDS: methylPREDNISolone SOD SUC 40 MG/1 ML VIAL IV SCH ×2 (12:21→23:48)
[2020-12-06] MEDS: ALPRAZolam 0.5 MG TABLET PO PRN (21:02)
[2020-12-07 05:04] LABS: Basophils # 0.1 10*3/uL (0.0-0.2); Basophils % 0.4 % (0.0-0.8); Eosinophils # 0.1 10*3/uL (0.0-0.87); Eosinophils % 0.4 % (0.00-10.9); Hematocrit 37.1 VOL% (35.7-47.0); Hemoglobin 11.9 GM/DL (12.0-16.0); Immature Granulocytes % 5.3 %; Immature Granulocytes Absolute 0.97 #; Lymphocytes % 5.6 % (21.3-54.2); Mean Corpuscular HGB Conc 32.1 GM/DL (32-36); Mean Corpuscular Volume 91.2 FL (87-102); Mean Platelet Volume 9.6 FL (9.6-12.0); Neutrophils % 86.3 % (38.7-73.9); Platelet Count 271 T/CUMM (130-400); Red Blood Count 4.07 MC/CUMM (3.8-5.5); Red Cell Distribution Width 12.9 % (9.3-17.3); White Blood Count 18.3 T/CUMM (4-12)
[2020-12-07 05:25] LABS: Calcium 8.3 MG/DL (8.5-10.1); Potassium 4.3 MMOL/L (3.5-5.1)
[2020-12-07 05:26] LABS: Hypochromasia 1+; Lymphocytes 4 % (20-55); Microcytosis 1+; Platelet Estimate Adequate; Segmented Neutrophils 94 % (50-85); Total Cells Counted 100
[2020-12-07] MEDS ORDERED: FUROSEMIDE 40 MG/4 ML VIAL IV SCH (09:00)
[2020-12-07] MEDS: APIXABAN 5 MG TABLET PO SCH ×2 (09:05→21:15)
[2020-12-07] MEDS: CHOLECALCIFEROL 1,000 UNIT TABLET PO SCH (09:05)
[2020-12-07] MEDS: ASCORBIC ACID 500 MG TABLET PO SCH ×2 (09:06→21:15)
[2020-12-07] MEDS: METOPROLOL TARTRATE 25 MG TABLET PO SCH ×2 (09:06→21:14)
[2020-12-07] MEDS: LOSARTAN 25 MG TABLET PO SCH (09:06)
[2020-12-07] MEDS: FAMOTIDINE 20 MG TABLET PO SCH ×2 (09:06→21:15)
[2020-12-07] MEDS: MULTIVITAMIN (CENTRUM) TABLET PO SCH (09:06)
[2020-12-07] MEDS: ZINC GLUCONATE 50 MG TABLET PO SCH (09:07)
[2020-12-07] MEDS: FLUTICASONE 50 MCG NASAL SPRAY 16 GM BOTTLE BOTH NARES SCH ×2 (09:07→21:16)
[2020-12-07] MEDS: ALPRAZolam 0.5 MG TABLET PO PRN ×2 (11:18→21:15)
[2020-12-07] MEDS: methylPREDNISolone SOD SUC 40 MG/1 ML VIAL IV SCH (12:17)
[2020-12-08] MEDS: methylPREDNISolone SOD SUC 40 MG/1 ML VIAL IV SCH ×2 (00:47→11:25)
[2020-12-08 04:04] LABS: ABG Base Excess 7.1 MMOL/L (-2.5-2.5); ABG PCO2 47.7 MM HG (35-48); ABG PH 7.441 (7.35-7.45); ABG TCO2 28.5 MMOL/L (23-27)
[2020-12-08 05:29] LABS: Basophils % 0.2 % (0.0-0.8); Eosinophils # 0.1 10*3/uL (0.0-0.87); Eosinophils % 0.2 % (0.00-10.9); Hematocrit 37.8 VOL% (35.7-47.0); Hemoglobin 12.2 GM/DL (12.0-16.0); Immature Granulocytes % 3.9 %; Immature Granulocytes Absolute 0.82 #; Lymphocytes # 1.2 10*3/uL (1.4-4.0); Lymphocytes % 5.5 % (21.3-54.2); Mean Corpuscular HGB Conc 32.3 GM/DL (32-36); Mean Corpuscular Volume 90.2 FL (87-102); Mean Platelet Volume 9.9 FL (9.6-12.0); Monocytes % 2.2 % (1.7-12.7); Platelet Count 284 T/CUMM (130-400); Red Blood Count 4.19 MC/CUMM (3.8-5.5); Red Cell Distribution Width 12.9 % (9.3-17.3); White Blood Count 20.8 T/CUMM (4-12)
[2020-12-08 06:04] LABS: Calcium 8.6 MG/DL (8.5-10.1); Ferritin 872.7 ng/ml (8-252); Potassium 4.4 MMOL/L (3.5-5.1)
[2020-12-08 06:06] LABS: Lymphocytes 5 % (20-55); Platelet Estimate Normal; Segmented Neutrophils 93 % (50-85); Total Cells Counted 100
[2020-12-08] MEDS: LOSARTAN 25 MG TABLET PO SCH (08:44)
[2020-12-08] MEDS: ASCORBIC ACID 500 MG TABLET PO SCH ×2 (08:44→21:16)
[2020-12-08] MEDS: CHOLECALCIFEROL 1,000 UNIT TABLET PO SCH (08:44)
[2020-12-08] MEDS: APIXABAN 5 MG TABLET PO SCH ×2 (08:44→21:16)
[2020-12-08] MEDS: MULTIVITAMIN (CENTRUM) TABLET PO SCH (08:45)
[2020-12-08] MEDS: FAMOTIDINE 20 MG TABLET PO SCH ×2 (08:45→21:16)
[2020-12-08] MEDS: ZINC GLUCONATE 50 MG TABLET PO SCH (08:45)
[2020-12-08] MEDS: METOPROLOL TARTRATE 25 MG TABLET PO SCH ×2 (08:45→21:16)
[2020-12-08] MEDS: FLUTICASONE 50 MCG NASAL SPRAY 16 GM BOTTLE BOTH NARES SCH ×2 (08:50→21:17)
[2020-12-08] MEDS: ALPRAZolam 0.5 MG TABLET PO PRN (21:16)
[2020-12-09] MEDS: methylPREDNISolone SOD SUC 40 MG/1 ML VIAL IV SCH ×2 (00:36→12:42)
[2020-12-09 06:17] LABS: Basophils # 0.1 10*3/uL (0.0-0.2); Basophils % 0.2 % (0.0-0.8); Eosinophils # 0.1 10*3/uL (0.0-0.87); Eosinophils % 0.3 % (0.00-10.9); Hemoglobin 12.4 GM/DL (12.0-16.0); Immature Granulocytes % 3.5 %; Immature Granulocytes Absolute 0.78 #; Lymphocytes # 1.3 10*3/uL (1.4-4.0); Lymphocytes % 5.8 % (21.3-54.2); Mean Corpuscular HGB Conc 32.6 GM/DL (32-36); Mean Corpuscular Volume 90.5 FL (87-102); Mean Platelet Volume 10.2 FL (9.6-12.0); Monocytes % 2.2 % (1.7-12.7); Platelet Count 319 T/CUMM (130-400); White Blood Count 22.3 T/CUMM (4-12)
[2020-12-09 06:42] LABS: Calcium 8.4 MG/DL (8.5-10.1); Potassium 4.4 MMOL/L (3.5-5.1)
[2020-12-09] MEDS: METOPROLOL TARTRATE 25 MG TABLET PO SCH (09:06)
[2020-12-09] MEDS: ZINC GLUCONATE 50 MG TABLET PO SCH (09:06)
[2020-12-09] MEDS: LOSARTAN 25 MG TABLET PO SCH (09:07)
[2020-12-09] MEDS: APIXABAN 5 MG TABLET PO SCH (09:07)
[2020-12-09] MEDS: CHOLECALCIFEROL 1,000 UNIT TABLET PO SCH (09:07)
[2020-12-09] MEDS: MULTIVITAMIN (CENTRUM) TABLET PO SCH (09:07)
[2020-12-09] MEDS: ASCORBIC ACID 500 MG TABLET PO SCH (09:07)
[2020-12-09] MEDS: FAMOTIDINE 20 MG TABLET PO SCH (09:07)
[2020-12-09] MEDS: FLUTICASONE 50 MCG NASAL SPRAY 16 GM BOTTLE BOTH NARES SCH (09:08)
[2020-12-09 10:38] LABS: Atypical Lymphocytes Few; Lymphocytes 5 % (20-55); Platelet Estimate Normal; Polychromasia Slight; Segmented Neutrophils 94 % (50-85); Total Cells Counted 100
[2020-12-09 11:39] VITALS: BP 111/65
[2020-12-09] MEDS ORDERED: SKIN HEALING OINT (AQUAPHOR) 50 GM TUBE TOP PRN (13:18)
[2020-12-10] MEDS ORDERED: predniSONE 20 MG TABLET PO SCH (09:00)
== END 2020-12-09 15:31 | DRG 193 ==
LOC: N.ED 20:14 → N.EDINP 11-26 01:27 → SUATTDRO 11-26 01:27 → N.CC 11-26 01:55 → N.5E 12-07 18:46
PROVIDERS: ADMIT Internal Medicine; ATTEND Internal Medicine